=== PATIENT | male | born 1960 | race African-American/Black ===

== ENCOUNTER 2017-10-21 02:04 | Emergency (ER) | payer OTHER ==
[2017-10-21 02:59] VITALS: TEMP 98.4; BMI 24.3
--- NOTE | 2017-10-21 03:44 | PDOC ---
History of Present Illness - General History Source: Patient Exam Limitations: No Limitations - History of Present Illness Initial Comments: 10/21/17 03:55 The patient is a 56 year old male with a significant PMH of HTN, HLD, and TIA who presents to the emergency department with left upper quadrant abdominal pain radiating to his left shoulder beginning approximately 2-3 week ago. The patient states the LUQ pain is a 9/10 and complains of intermittent burping. The patient reports that he has been taking Gas-X with no relief of symptoms. The patient denies any change in bowel movements. The patient denies chest pain , shortness of breath, headache and dizziness. Denies fever, chills, nausea, vomit, diarrhea and constipation. Denies dysuria, frequency, urgency and hematuria. Allergies: NKA Past surgical history: None reported. Social history: No reported alcohol, drug, or cigarette use. PCP: Dr. Joseph <Addis Alexandre - Last Filed: 10/21/17 03:55> - General History Source: Patient <Jermaine Velasquez - Last Filed: 10/21/17 04:29> - General Chief Complaint: Pain Stated Complaint: ABD PAIN Time Seen by Provider: 10/21/17 03:08 Past History <Addis Alexanrde - Last Filed: 10/21/17 03:55> - Past Medical History COPD: No HTN: Yes Hypercholesterolemia: Yes - Surgical History Appendectomy: Yes - Immunization History Immunization Up to Date: Yes - Suicide/Smoking/Psychosocial Hx Smoking History: Never smoked Have you smoked in the past 12 months: No Number of Cigarettes Smoked Daily: 0 Information on smoking cessation initiated: No Hx Alcohol Use: Yes Drug/Substance Use Hx: No Substance Use Type: Alcohol <Jermaine Velasquez - Last Filed: 10/21/17 04:29> - Past Medical History Allergies/Adverse Reactions: Allergies Allergy/AdvReac Type Severity Reaction Status Date / Time No Known Allergies Allergy Verified 10/21/17 02:56 Home Medications: Ambulatory Orders Amlodipine Besylate [Norvasc -] 5 mg PO DAILY 08/08/16 Atorvastatin Ca [Lipitor] 40 mg PO HS 08/08/16 Cholecalciferol (Vitamin D3) [Vitamin D3] 2,000 unit PO DAILY 08/08/16 Aspirin [ASA -] 81 mg PO DAILY #30 tab.chew 08/09/16 Indomethacin 25 mg PO ASDIR #24 capsule 10/21/16 Pantoprazole Sodium [Protonix] 40 mg PO DAILY #30 tablet. 10/21/17 Review of Systems - Review of Systems Able to Perform ROS?: Yes Comments:: 10/21/17 04:01 CONSTITUTIONAL: Absent: fever, no chills, no fatigue EYES: Absent: visual changes ENT: Absent: ear pain, no sore throat CARDIOVASCULAR: Absent: chest pain, no palpitations RESPIRATORY: Absent: cough, no SOB GI: Absent: no nausea, no vomiting, no constipation, no diarrhea Present: LUQ abdominal pain radiating to his left shoulder GENITOURINARY: Absent: dysuria, no frequency, no hematuria MUSKULOSKELETAL: Absent: back pain, no arthralgia, no myalgia SKIN: Absent: rash NEURO: Absent: headache <Addis Alexandre - Last Filed: 10/21/17 03:55> *Physical Exam - Vital Signs Last Vital Signs Temp Pulse Resp BP Pulse Ox 98.4 F 84 14 161/91 98 10/21/17 02:56 10/21/17 02:56 10/21/17 02:56 10/21/17 02:56 10/21/17 02:56 - Physical Exam Comments: 10/21/17 04:02 GENERAL: Well developed, well nourished. Awake and alert. No acute distress. HEENT: Normocephalic, atraumatic. PERRLA, EOMI. No conjunctival pallor. Sclera are non- icteric. Moist mucous membranes. Oropharynx is clear. NECK: Supple. Full ROM. No JVD. Carotid pulses 2+ and symmetric, without bruits. No thyromegaly. No lymphadenopathy. CARDIOVASCULAR: Regular rate and rhythm. No murmurs, rubs, or gallops. Distal pulses are 2+ and symmetric. PULMONARY: No evidence of respiratory distress. Lungs clear to auscultation bilaterally. No wheezing, rales or rhonchi. ABDOMINAL: Soft. Non-tender. Non-distended. No rebound or guarding. No organomegaly. Normoactive bowel sounds. MUSCULOSKELETAL Normal range of motion at all joints. No bony deformities or tenderness. No CVA tenderness. EXTREMITIES: No cyanosis. No clubbing. No edema. No calf tenderness. SKIN: Warm and dry. Normal capillary refill. No rashes. No jaundice. NEUROLOGICAL: Alert, awake, appropriate. Cranial nerves 2-12 intact. No deficits to light touch and temperature in face, upper extremities and lower extremities. No motor deficits in the in face, upper extremities and lower extremities. Normoreflexic in the upper and lower extremities. Normal speech. Toes are down- going bilaterally. Gait is normal without ataxia. PSYCHIATRIC: Cooperative. Good eye contact. Appropriate mood and affect. <Addis Alexandre - Last Filed: 10/21/17 03:55> - Vital Signs Last Vital Signs Temp Pulse Resp BP Pulse Ox 98.4 F 84 14 161/91 98 10/21/17 02:56 10/21/17 02:56 10/21/17 02:56 10/21/17 02:56 10/21/17 02:56 <Jermaine Velasquez - Last Filed: 10/21/17 04:29> Medical Decision Making - Medical Decision Making 10/21/17 04:29 Dr. Velasquez: The scribe's documentation has been prepared under my direction and personally reviewed by me in its entirery. I confirm that the note above accurately reflects all work, treatment, procedures, and medical decision making performed by me. <Jermaine Velasquez - Last Filed: 10/21/17 04:29> *DC/Admit/Observation/Transfer - Attestations Scribe Attestion: 10/21/17 04:03 Documentation prepared by Addis Alexandre, acting as medical research scientist for Jermaine Velasquez DO. <Addis Alexandre - Last Filed: 10/21/17 03:55> - Discharge Dispostion Admit: No <Jermaine Velasquez - Last Filed: 10/21/17 04:29> Diagnosis at time of Disposition: Abdominal pain - Discharge Dispostion Disposition: HOME Condition at time of disposition: Stable - Referrals Referrals: Sanjana Joseph MD [Primary Care Provider] - - Patient Instructions Printed Discharge Instructions: DI for Abdominal Pain-Adult - Post Discharge Activity
[2017-10-21] MEDS ORDERED: PANTOPRAZOLE 40 MG TABLET (FP) PO ONE (03:55)
[2017-10-21] MEDS ORDERED: PANTOPRAZOLE 40 MG TABLET (FP) ONE (03:58)
[2017-10-21 04:36] VITALS: BP 120/82; PULSE 87
== END 2017-10-21 04:36 | disposition home or self-care (01) ==
LOC: JER 02:04
DX: R10.9 Unspecified abdominal pain (principal); I10 Essential (primary) hypertension; E78.5 Hyperlipidemia, unspecified
CPT/HCPCS: 99281-25

== ENCOUNTER 2017-10-21 23:35 | Emergency (ER) | payer OTHER ==
[2017-10-21 23:41] VITALS: BP 156/95; PULSE 81; TEMP 98
--- NOTE | 2017-10-22 00:18 | PDOC ---
History of Present Illness - History of Present Illness Initial Comments: 10/22/17 00:42 56 y/o M with a PMHx of HLD presents to the ED with LUQ pain for 3 weeks. Patient states the pain has gotten progressively worse the past two days. Patient rates the pain a 10/10. He states the pain radiates up to his left sided chest. Patient took camille seltzer and gas-x yesterday with no relief. Patient presented to the ED last night for similar symptoms and was discharged on Protonix. Patient denies fever, chills, NVD. Denies urinary complaints. <Sara Perkins - Last Filed: 10/22/17 01:56> <Maik Bradley - Last Filed: 10/29/17 03:00> - General Chief Complaint: Pain Stated Complaint: PAIN Time Seen by Provider: 10/21/17 23:58 Past History <Sara Perkins - Last Filed: 10/22/17 01:56> - Past Medical History COPD: No HTN: Yes Hypercholesterolemia: Yes - Surgical History Appendectomy: Yes - Immunization History Immunization Up to Date: Yes - Suicide/Smoking/Psychosocial Hx Smoking History: Never smoked Have you smoked in the past 12 months: No Number of Cigarettes Smoked Daily: 0 Hx Alcohol Use: Yes Drug/Substance Use Hx: No Substance Use Type: Alcohol <Maik Bradley - Last Filed: 10/29/17 03:00> - Past Medical History Allergies/Adverse Reactions: Allergies Allergy/AdvReac Type Severity Reaction Status Date / Time No Known Allergies Allergy Verified 10/21/17 23:41 Home Medications: Ambulatory Orders Pantoprazole Sodium [Protonix] 40 mg PO DAILY #30 tablet. 10/21/17 Naproxen [Naprosyn -] 500 mg PO BID PRN #14 tablet 10/22/17 Review of Systems - Review of Systems Comments:: 10/22/17 00:42 CONSTITUTIONAL: No fever, no chills, no fatigue EYES: No visual changes ENT: No ear pain, no sore throat CARDIOVASCULAR: (+) chest pain. no palpitations RESPIRATORY: No cough, no SOB GI: (+) LUQ pain. No nausea, no vomiting, no constipation, no diarrhea GENITOURINARY: No dysuria, no frequency, no hematuria MUSCULOSKELETAL: No back pain, no joint pain, no myalgias SKIN: No rash NEURO: No headache <Sara Perkins - Last Filed: 10/22/17 01:56> *Physical Exam - Vital Signs Last Vital Signs Temp Pulse Resp BP Pulse Ox 98 F 81 18 156/95 100 10/21/17 23:39 10/21/17 23:39 10/21/17 23:39 10/21/17 23:39 10/21/17 23:39 - Physical Exam Comments: 10/22/17 00:42 CONSTITUTIONAL: Well-appearing; well-nourished; in no apparent distress HEAD: Normocephalic; atraumatic EYES: PERRL; EOM intact ENMT: External appears normal; normal oropharynx NECK: Supple; nontender; no cervical lymphadenopathy CARD: Normal S1, S2; no murmurs, rubs, or gallops RESP: Normal chest excursion with respiration; breath sounds clear and equal bilaterally; no wheezes, rhonchi, or rales ABD: LLQ tenderness, L CVA tenderness. Soft, non-distended; no palpable organomegaly, no palpable hernias EXT: Normal ROM in all four extremities; non-tender to palpation; distal pulses intact SKIN: Warm, dry, no rash NEURO: No focal neurological deficiencies. <Sara Perkins - Last Filed: 10/22/17 01:56> - Vital Signs Last Vital Signs Temp Pulse Resp BP Pulse Ox 98 F 81 18 156/95 100 10/21/17 23:39 10/21/17 23:39 10/21/17 23:39 10/21/17 23:39 10/21/17 23:39 <Maik Bradley - Last Filed: 10/29/17 03:00> ED Treatment Course - LABORATORY CBC & Chemistry Diagram: 10/22/17 01:30 10/22/17 01:04 <Sara Perkins - Last Filed: 10/22/17 01:56> - LABORATORY CBC & Chemistry Diagram: 10/22/17 01:30 10/22/17 01:30 <Maik Bradley - Last Filed: 10/29/17 03:00> *DC/Admit/Observation/Transfer - Attestations Scribe Attestion: 10/22/17 00:43 Documentation prepared by Sara Perkins, acting as curator medical museum for Maik Bradley MD. <Sara Perkins - Last Filed: 10/22/17 01:56> <Maik Bradley - Last Filed: 10/29/17 03:00> Diagnosis at time of Disposition: Abdominal pain - Discharge Dispostion Disposition: HOME Condition at time of disposition: Stable - Prescriptions Prescriptions: Naproxen [Naprosyn -] 500 mg PO BID PRN #14 tablet PRN Reason: Pain - Referrals Referrals: Sanjana Joseph MD [Primary Care Provider] - - Patient Instructions Printed Discharge Instructions: DI for Abdominal Pain-Adult Additional Instructions: Follow-up with your primary care doctor within 2-3 days. You may take naproxen for your pain. If your insurance does not cover your naproxen prescription, you may take over the counter ibuprofen as needed for pain. Do not take both ibuprofen and naproxen. Return to the emergency department if you have any new, worsening or concerning symptoms. Print Language: TUNISIAN - Post Discharge Activity
[2017-10-22] MEDS ORDERED: KETOROLAC TROMETHAMINE 15 MG/ML VIAL IVPUSH ONE (00:38)
[2017-10-22] MEDS ORDERED: KETOROLAC TROMETHAMINE 15 MG/ML VIAL ONE (00:41)
[2017-10-22 01:12] LABS: URINE APPEARANCE CLEAR; URINE BILIRUBIN NEGATIVE (NEGATIVE); URINE BLOOD 1+ (NEGATIVE); URINE COLOR STRAW; URINE GLUCOSE (UA) NEGATIVE (NEGATIVE); URINE KETONE NEGATIVE (NEGATIVE); URINE NITRITE NEGATIVE (NEGATIVE); URINE PROTEIN NEGATIVE (NEGATIVE); URINE UROBILINOGEN NEGATIVE mg/dL (0.2-1.0)
[2017-10-22 01:20] LABS: URINE RBC 2 /hpf (0-3); URINE WBC <1 /hpf (3-5)
[2017-10-22 01:46] LABS: BASOPHIL 0.2 % (0-2.0); EOSINOPHIL 1.1 % (0-4.5); MCH 27.9 pg (25.7-33.7); MCHC 33.3 g/dl (32.0-35.9); MEAN CELL VOLUME 83.9 fl (80-96); NEUTROPHILS 63.3 % (42.8-82.8); PLATELET COUNT 191 K/MM3 (134-434); RDW 13.4 % (11.9-15.9); WHITE BLOOD COUNT 8.6 K/mm3 (4.0-10.0)
[2017-10-22 02:09] LABS: ALBUMIN 4.1 g/dl (3.4-5.0); ANION GAP 8 (8-16); BILIRUBIN,TOTAL 0.4 mg/dL (0.2-1.0); CALCIUM 9.4 mg/dL (8.5-10.1); CO2 32 mmol/L (21-32); CREATININE 1.2 mg/dL (0.7-1.3); GLUCOSE,RANDOM 96 mg/dL (74-106); SGOT/AST 12 U/L (15-37); SGPT/ALT 25 U/L (12-78)
[2017-10-22 02:10] LABS: ALK PHOS 94 U/L (45-117)
--- NOTE | 2017-10-22 02:26 | PDOC ---
*Physical Exam - Vital Signs Last Vital Signs Temp Pulse Resp BP Pulse Ox 98 F 81 18 156/95 100 10/21/17 23:39 10/21/17 23:39 10/21/17 23:39 10/21/17 23:39 10/21/17 23:39 ED Treatment Course - LABORATORY CBC & Chemistry Diagram: 10/22/17 01:30 10/22/17 01:30 - ADDITIONAL ORDERS Additional order review: Laboratory Results 10/22/17 10/22/17 10/22/17 01:30 01:04 01:04 Sodium 140 Cancelled Potassium 4.3 Cancelled Chloride 100 Cancelled Carbon Dioxide 32 Cancelled Anion Gap 8 Cancelled BUN 12 Cancelled Creatinine 1.2 Cancelled Creat Clearance w eGFR > 60 Cancelled Random Glucose 96 Cancelled Calcium 9.4 Cancelled Total Bilirubin 0.4 Cancelled AST 12 L D Cancelled ALT 25 D Cancelled Alkaline Phosphatase 94 Cancelled Total Protein 8.0 Cancelled Albumin 4.1 Cancelled Lipase 143 Cancelled Urine Color Straw Urine Appearance Clear Urine pH 6.0 Ur Specific [place] 1.006 Urine Protein Negative Urine Glucose (UA) Negative Urine Ketones Negative Urine Blood 1+ H Urine Nitrite Negative Urine Bilirubin Negative Urine Urobilinogen Negative Urine WBC (Auto) <1 Urine RBC (Auto) 2 10/22/17 10/22/17 01:30 01:04 RBC 5.00 Cancelled MCV 83.9 Cancelled MCHC 33.3 Cancelled RDW 13.4 Cancelled MPV 9.0 Cancelled Neutrophils % 63.3 Cancelled Lymphocytes % 22.9 Cancelled Monocytes % 12.5 H Cancelled Eosinophils % 1.1 Cancelled Basophils % 0.2 Cancelled - Medications Given in the ED: ED Medications Discontinued Medications Generic Name Dose Route Start Last Admin Trade Name Freq PRN Reason Stop Dose Admin Ketorolac Tromethamine 15 mg 10/22/17 00:38 10/22/17 01:30 Toradol Injection - IVPUSH 10/22/17 00:39 15 mg ONCE ONE Administration Medical Decision Making - Medical Decision Making 10/22/17 02:25 Patient signed out to me by Dr. Bradley, is pending CT to rule out kidney stone. Per Dr. Bradley if CT scan is negative the patient can be discharged with NSAIDs. CT scan is pending currently. 10/22/17 04:05 CT scan with possible atelectasis versus infiltrate in the left lower lung base. On my evaluation, the patient denies any fevers or chills or coughing. Lungs are clear to auscultation bilaterally. He states that currently he has no pain after the pain medication. Pain is likely musculoskeletal. Will discharge the patient with naproxen and advised him to follow-up with his primary doctor in 2-3 days. Patient is amenable to plan. I discussed the physical exam findings, ancillary test results and final diagnoses with the patient. I answered all of the patient's questions. The patient was satisfied with the care received and felt comfortable with the discharge plan and treatment plan. The patient will call their primary care physician within 24 hours to arrange follow-up and will return to the Emergency Department with any new, persistent or worsening symptoms. *DC/Admit/Observation/Transfer Diagnosis at time of Disposition: Abdominal pain - Discharge Dispostion Disposition: HOME Condition at time of disposition: Stable Admit: No - Referrals Referrals: Sanjana Joseph MD [Primary Care Provider] - - Patient Instructions Printed Discharge Instructions: DI for Abdominal Pain-Adult Additional Instructions: Follow-up with your primary care doctor within 2-3 days. You may take naproxen for your pain. If your insurance does not cover your naproxen prescription, you may take over the counter ibuprofen as needed for pain. Do not take both ibuprofen and naproxen. Return to the emergency department if you have any new, worsening or concerning symptoms. Print Language: CROATIAN - Post Discharge Activity - Attestations Physician Attestion: 10/22/17 04:08 I, Dr. Andrew Moreno MD, attest that this document has been prepared under my direction and personally reviewed by me in its entirety. I further attest, that it accurately reflects all work, treatment, procedures and medical decision -making performed by me.
[2017-10-22 10:48] LABS: URINE LEUK ESTERASE Negative (NEGATIVE)
== END 2017-10-22 04:22 | disposition home or self-care (01) ==
LOC: JER 23:35
PROC: 3E0333Z Introduction of Anti-inflammatory into Peripheral Vein, Percutaneous Approach (ICD-10-PCS; principal; 2017-10-21)
DX: R10.12 Left upper quadrant pain (principal)
CPT/HCPCS: 36415; 74176; 80053; 81003; 81015; 83690; 85025; 87086; 96374; 99281-25; 99283-25

== ENCOUNTER 2019-03-07 02:05 | Emergency (ER) | payer OTHER ==
--- NOTE | 2019-03-07 02:30 | PDOC ---
History of Present Illness - General Stated Complaint: PAIN LEFT FOOT Time Seen by Provider: 03/07/19 02:27 - History of Present Illness Initial Comments: 03/07/19 02:28 58 yo M with h/o HTN, HLD, TIA who p/w left ankle pain. Patient reports 3-4 days of worsening left ankle pain, and swelling, worse with ambulation. Pain described as sharp, and diffusely painful at left ankle. Patient reports he has h/o gout and consistent with prior gout flares. States that he has been more sedentary and has increased beer and meat intake within past week. Patient states that he took colchicine and one prednsione pill 3 days ago. Denies trauma to ankle or fall. Patient denies T[place], vision change, palpitations, cough, wheezing, orthopena, PND , leg swelling/pain, N/V, F,C, CP, SOB, urinary complaints, hematuria, BPR, abdominal pain, diarrhea, constipation, lightheadedness, weakness, sensory changes. PMHx: as noted above ROS: as noted SHx: Denies IVDA, tobacco use Allergies: NKDA Past History - Past Medical History Allergies/Adverse Reactions: Allergies Allergy/AdvReac Type Severity Reaction Status Date / Time No Known Allergies Allergy Verified 03/07/19 02:34 Home Medications: Ambulatory Orders Pantoprazole Sodium [Protonix] 40 mg PO DAILY #30 tablet. 10/21/17 Naproxen [Naprosyn -] 500 mg PO BID PRN #14 tablet 10/22/17 Colchicine 0.6 mg PO ONCE #1 tablet 03/07/19 Indomethacin 25 mg PO PRN PRN #30 capsule MDD 2 tab 03/07/19 Pravastatin Sodium [Pravachol -] 40 mg PO HS #30 tablet 03/07/19 predniSONE [Deltasone -] See Taper PO DAILY #8 tablet MDD see taper 03/07/19 COPD: No HTN: Yes Hypercholesterolemia: Yes - Surgical History Appendectomy: Yes - Immunization History Immunization Up to Date: Yes - Suicide/Smoking/Psychosocial Hx Smoking History: Never smoked Have you smoked in the past 12 months: No Number of Cigarettes Smoked Daily: 0 Hx Alcohol Use: Yes Drug/Substance Use Hx: No Substance Use Type: Alcohol Review of Systems - Review of Systems Comments:: 03/07/19 02:29 GENERAL/CONSTITUTIONAL: No fever or chills. No weakness. HEAD, EYES, EARS, NOSE AND THROAT: No change in vision. No ear pain or discharge. No sore throat. CARDIOVASCULAR: No chest pain or shortness of breath RESPIRATORY: No cough, wheezing, or hemoptysis. GASTROINTESTINAL: No nausea, vomiting, diarrhea or constipation. GENITOURINARY: No dysuria, frequency, or change in urination. MUSCULOSKELETAL: + Left ankle pain/swelling. No neck or back pain. SKIN: No rash NEUROLOGIC: No headache, vertigo, loss of consciousness, or change in strength/ sensation. ENDOCRINE: No increased thirst. No abnormal weight change HEMATOLOGIC/LYMPHATIC: No anemia, easy bleeding, or history of blood clots. ALLERGIC/IMMUNOLOGIC: No hives or skin allergy. *Physical Exam - Physical Exam Comments: 03/07/19 02:29 GENERAL: Awake, alert, and fully oriented, in no acute distress HEAD: No signs of trauma, normocephalic, atraumatic EYES: PERRLA, EOMI, sclera anicteric, conjunctiva clear ENT: Hearing grossly normal, nares patent, oropharynx clear without exudates. Moist mucosa NECK: Normal ROM, supple, no lymphadenopathy, JVD, or masses LUNGS: No distress, speaks full sentences, clear to auscultation bilaterally HEART: Regular rate and rhythm, normal S1 and S2, no murmurs, rubs or gallops, peripheral pulses normal and equal bilaterally. ABDOMEN: Soft, nontender, normoactive bowel sounds. No guarding, no rebound. No masses EXTREMITIES : + Left ankle swelling/edema, with absent overlying warmth, streaking, or erythema. Pain with passive dorsiflexion. Extrermities otherwise normal inspection, Normal range of motion, no edema. No clubbing or cyanosis. Palpable and symmetric pulses DP/PT BL. NEUROLOGICAL: Cranial nerves II through XII grossly intact. Normal speech, normal gait, no focal sensorimotor deficits SKIN: Warm, Dry, normal turgor, no rashes or lesions noted Medical Decision Making - Medical Decision Making 03/07/19 02:46 58 yo M with h/o HTN, HLD, TIA who p/w left ankle pain. Patient reports 3-4 days of worsening left ankle pain, and swelling, worse with ambulation. Vtials wnl, AF, A&Ox3. + Left ankle swelling/edema, with absent overlying warmth, streaking, or erythema. Patient with likely gout vs. pseudogout. Will consider degenerative disease, ankle sprain/strain. No evidence of septic joint. Denies acute ankle trauma or injury. ED Course: Colchicine 1.2 mg, Indomethacin, Prednisone 50 mg 03/07/19 02:54 Patient counseled on dietary modification and need to f/u with PMD 03/07/19 03:48 Sent Indomethacin, steroid taper to pharmacy Stable for d/c with return precautions. Seen ambulating around ED. *DC/Admit/Observation/Transfer Diagnosis at time of Disposition: Gout Qualifiers: Gout site: ankle Gout etiology: unspecified cause Chronicity: acute Laterality : left Qualified Code(s): M10.9 - Gout, unspecified - Discharge Dispostion Condition at time of disposition: Stable Decision to Admit order: No - Prescriptions Prescriptions: Colchicine 0.6 mg PO ONCE #1 tablet Indomethacin 25 mg PO PRN PRN #30 capsule MDD 2 tab PRN Reason: Pain Pravastatin Sodium [Pravachol -] 40 mg PO HS #30 tablet predniSONE [Deltasone -] See Taper PO DAILY #8 tablet MDD see taper - Referrals Referrals: Pati Ramirez MD [Primary Care Provider] - - Patient Instructions Printed Discharge Instructions: DI for Gout, Gout (Alternative Therapy), Higher Vitamin C Intake Associated With Lower Risk of Gout Additional Instructions: Please return to the emergency department with any new or worsening symptoms or concerns. Please follow up with your primary care physician within 72 hours. Take Prednisone and Indomethacin as prescribed. - Post Discharge Activity
[2019-03-07 02:34] VITALS: BMI 22.7
[2019-03-07] MEDS ORDERED: INDOMETHACIN 25 MG CAPSULE PO ONE (02:43)
[2019-03-07] MEDS ORDERED: COLCHICINE 0.6 MG TABLET (FP) PO ONE (02:43)
[2019-03-07] MEDS ORDERED: predniSONE 20 MG TABLET (UD) PO SCH ×2 (02:59→10:00)
--- NOTE | 2019-03-07 03:00 | PDOC ---
Attending Attestation - Resident Resident Name: DnetonSpencerMarcel - ED Attending Attestation I have performed the following: I have examined & evaluated the patient, The case was reviewed & discussed with the resident, I agree w/resident's findings & plan - HPI HPI: 03/07/19 02:56 58 YOM with h/o HTN, HLD and TIA, gouty presenting with 3-4 d of left ankle pain and swelling admits he ran out of his meds: prednisone, colchicine and indomethacin. also admits to drinking beer/etoh and high intake of meats also endorses stressors with the tax season, since November 2018 and has not been able to see his primary doctor. - Physicial Exam PE: 03/07/19 02:57 NAD, well appearing, no respiratory distress, 2+ pulses throughout. abdomen soft nontender. SALDANA x4, no focal neuro deficits. No peripheral edema. normal color for ethnicity, WWP. +left ankle tenderness in malleolar joints, FROM, mild swelling, no skin discoloration, able to bear weight and ambulate - Medical Decision Making 03/07/19 02:58 hpi as documented VS reviewed, wnl no trauma. no systemic or infectious sx. given dose of his meds here, rx script for his usual gouty regimen analgesia, steroid short course. no imaging indicated caution and counseled on dietary modifications, avoid high intake of protein, deli meats/salty foods, alcohol and stressors as triggers. Pt informed of my clinical impression, treatment recommendations and disposition plan. All questions answered to patient's satisfaction and expressed understanding and comfort with this. Reasons for returning to the ED sooner discussed including new or persistent/worsening symptoms with the patient otherwise, follow up with primary care physician. At the time of discharge, the patient is alert, clinically improved, tolerating po and verbalizes understanding of instructions, satisfied with the care received and felt comfortable with the plan. Patient does not suffer from an acute life- threatening medical condition at this time he is safe for outpatient follow-up.
[2019-03-07] MEDS ORDERED: COLCHICINE 0.6 MG TABLET (FP) ONE (03:02)
[2019-03-07] MEDS ORDERED: predniSONE 20 MG TABLET (UD) ONE (03:02)
[2019-03-07] MEDS ORDERED: predniSONE 20 MG TABLET (UD) PO ONE (03:26)
[2019-03-07 05:12] VITALS: BP 154/82; PULSE 80; TEMP 97.8
== END 2019-03-07 05:12 | disposition home or self-care (01) ==
LOC: JER 02:05
DX: M10.9 Gout, unspecified (principal); I10 Essential (primary) hypertension; E78.5 Hyperlipidemia, unspecified; Z86.73 Personal history of transient ischemic attack (TIA), and cerebral infarction without residual deficits
CPT/HCPCS: 99282-25

== ENCOUNTER 2022-05-18 22:49 | Emergency (ER) | payer OTHER ==
[2022-05-18 23:11] VITALS: TEMP 98; BMI 25.1
[2022-05-19] MEDS ORDERED: amLODIPine BESYLATE 5 MG TABLET (FP) PO ONE (00:45)
[2022-05-19] MEDS ORDERED: amLODIPine BESYLATE 5 MG TABLET (FP) ONE (00:51)
[2022-05-19 01:42] LABS: BASO % 0.4 % (0-2.0); HEMATOCRIT 41.8 % (35.4-49); HEMOGLOBIN 13.6 GM/dL (11.7-16.9); LYMPH % 32.7 % (8-40); MCH 28.1 pg (25.7-33.7); MCHC 32.6 g/dl (32.0-35.9); MEAN PLT VOLUME 9.6 fl (7.5-11.1); MONO % 10.8 % (3.8-10.2); NEUT % 54.1 % (42.8-82.8); PLATELET COUNT 171 10^3/uL (134-434); RBC 4.85 M/mm3 (4.00-5.60)
[2022-05-19 01:43] LABS: EPI CELLS 10 /uL (0-25.1); HYALINE CASTS 2 /uL (0-3.1); PH,URINE 5.5 (5.0-8.0); URINE APPEARANCE CLEAR; URINE BACTERIA 12 /uL (0-1359); URINE BILIRUBIN NEGATIVE (NEGATIVE); URINE COLOR YELLOW; URINE GLUCOSE (UA) NEGATIVE (NEGATIVE); URINE KETONE NEGATIVE (NEGATIVE); URINE LEUK ESTERASE 1+ (NEGATIVE); URINE NITRITE NEGATIVE (NEGATIVE); URINE PROTEIN NEGATIVE (NEGATIVE); URINE RBC 4 /uL (0-23.9); URINE WBC 261 /uL (0-25.8)
[2022-05-19 01:59] LABS: ALBUMIN 3.6 g/dl (3.4-5.0); BLOOD UREA NITROGEN 13.2 mg/dL (7-18); CALCIUM 8.8 mg/dL (8.5-10.1)
[2022-05-19 02:02] LABS: CREATININE 1.1 mg/dL (0.55-1.3)
[2022-05-19 02:04] LABS: BILIRUBIN,TOTAL 0.5 mg/dL (0.2-1); TOT PROT 7.7 g/dl (6.4-8.2)
[2022-05-19] MEDS ORDERED: CEFTRIAXONE 1 GM in DEXTROSE 5%-WATER - 100 ML IVPB ONE (02:20)
[2022-05-19] MEDS ORDERED: CEFTRIAXONE 1 GM/50 ML BAG ONE (02:38)
[2022-05-19 03:00] VITALS: BP 164/90; PULSE 85
== END 2022-05-19 03:02 | disposition home or self-care (01) ==
LOC: JER 22:49
DX: N39.0 Urinary tract infection, site not specified (principal); I10 Essential (primary) hypertension; Z20.2 Contact with and (suspected) exposure to infections with a predominantly sexual mode of transmission
CPT/HCPCS: 36415; 80053; 81003; 85025; 87491; 87591; 87661; 93005; 93010; 96374; 99284-25

== ENCOUNTER 2022-07-06 21:37 | Emergency (ER) | payer OTHER ==
[2022-07-06 21:54] VITALS: RESP 18; TEMP 98; BMI 28.1
[2022-07-06 23:48] LABS: BASO % 0.3 % (0-2.0); EOS % 0.7 % (0-4.5); HEMATOCRIT 46.9 % (35.4-49); HEMOGLOBIN 15.7 GM/dL (11.7-16.9); LYMPH % 23.8 % (8-40); MCH 28.3 pg (25.7-33.7); MCHC 33.4 g/dl (32.0-35.9); MEAN CELL VOLUME 84.5 fl (80-96); MEAN PLT VOLUME 9.3 fl (7.5-11.1); MONO % 11.8 % (3.8-10.2); NEUT % 63.4 % (42.8-82.8); PLATELET COUNT 208 10^3/uL (134-434); RBC 5.55 M/mm3 (4.00-5.60); WHITE BLOOD COUNT 8.5 K/mm3 (4.0-10.0)
[2022-07-07 00:10] LABS: CALCIUM 9.1 mg/dL (8.5-10.1)
[2022-07-07 00:11] LABS: ALBUMIN 3.9 g/dl (3.4-5.0); BLOOD UREA NITROGEN 8.9 mg/dL (7-18)
[2022-07-07 00:14] LABS: CREATININE 1.2 mg/dL (0.55-1.3)
[2022-07-07 00:16] LABS: BILIRUBIN,TOTAL 0.6 mg/dL (0.2-1); TOT PROT 7.8 g/dl (6.4-8.2)
[2022-07-07 00:35] VITALS: BP 144/104; PULSE 87
== END 2022-07-07 00:45 | disposition home or self-care (01) ==
LOC: JER 21:37
DX: I10 Essential (primary) hypertension (principal)
CPT/HCPCS: 36415; 80053; 85025; 93005; 93010; 99284-25

== ENCOUNTER 2022-07-09 11:11 | Emergency (ER) | payer OTHER ==
[2022-07-09 11:17] VITALS: RESP 18; BMI 27.3
[2022-07-09] MEDS ORDERED: TETRACAINE 0.5% HCL 0.6ML DROPPER.BOTTLE OS ONE (12:27)
[2022-07-09] MEDS ORDERED: FLUORESCEIN NA 1 EA STRIP ONE (12:35)
[2022-07-09] MEDS ORDERED: TETRACAINE 0.5% OPHTH SOLN 2 ML BOTTLE ONE (12:35)
[2022-07-09 13:22] VITALS: PULSE 93; TEMP 98.4
[2022-07-09 13:34] VITALS: BP 165/99
== END 2022-07-09 14:07 | disposition home or self-care (01) ==
LOC: JER 11:11
DX: T15.90XA Foreign body on external eye, part unspecified, unspecified eye, initial encounter (principal)
CPT/HCPCS: 99283-25

== ENCOUNTER 2024-01-23 21:37 | Emergency (ER) | payer OTHER ==
[2024-01-23 21:43] VITALS: TEMP 97.6; BMI 26.6
[2024-01-23 22:03] VITALS: BP 158/87; PULSE 96; RESP 18
[2024-01-23] MEDS ORDERED: ACETAMINOPHEN INJECTION 100 ML IVPB ONE (22:12)
[2024-01-23] MEDS ORDERED: MAG HYDROX/AL HYDROX/SIMETH 30 ML UNIT-DOSE CUP ONE (22:12)
[2024-01-23] MEDS ORDERED: FAMOTIDINE 20 MG/50 ML IVPB 20 MG/50 ML MG IVPB ONE (22:12)
[2024-01-23] MEDS: FAMOTIDINE 20 MG/50 ML IVPB 20 MG/50 ML MG IVPB ONE (22:32)
[2024-01-23] MEDS: ACETAMINOPHEN 1000 MG/100 ML BAG IVPB ONE (22:32)
[2024-01-23] MEDS: MAG HYDROX/AL HYDROX/SIMETH 30 ML UNIT-DOSE CUP PO ONE (22:32)
[2024-01-23 22:33] LABS: BASO % 0.4 % (0-2.0); EOS % 1.3 % (0-4.5); HEMATOCRIT 41.4 % (35.4-49); HEMOGLOBIN 13.8 GM/dL (11.7-16.9); LYMPH % 29.4 % (8-40); MCH 28.2 pg (25.7-33.7); MCHC 33.4 g/dl (32.0-35.9); MEAN CELL VOLUME 84.5 fl (80-96); MEAN PLT VOLUME 8.5 fl (7.5-11.1); MONO % 9.5 % (3.8-10.2); NEUT % 59.4 % (42.8-82.8); PLATELET COUNT 197 10^3/uL (134-434); RDW 13.6 % (11.9-15.9); WHITE BLOOD COUNT 7.1 K/mm3 (4.0-10.0)
[2024-01-23 22:42] LABS: PH,URINE 6.5 (5.0-8.0); URINE APPEARANCE CLEAR; URINE BILIRUBIN NEGATIVE (NEGATIVE); URINE COLOR YELLOW; URINE GLUCOSE (UA) NEGATIVE (NEGATIVE); URINE KETONE NEGATIVE (NEGATIVE); URINE LEUK ESTERASE NEGATIVE (NEGATIVE); URINE NITRITE NEGATIVE (NEGATIVE); URINE PROTEIN NEGATIVE (NEGATIVE); URINE UROBILINOGEN 0.2 mg/dL (0.2-1.0)
[2024-01-23 22:46] LABS: ACTIVATED PTT 32.3 SECONDS (25.2-36.5); INR 0.97 (0.83-1.09); PROTHROMBIN TIME (PATIENT) 11.2 SEC (9.7-13.0)
[2024-01-23 22:59] LABS: POTASSIUM 4.4 mmol/L (3.5-5.1)
[2024-01-23 23:01] LABS: CALCIUM 9.1 mg/dL (8.5-10.1)
[2024-01-23 23:02] LABS: ALBUMIN 3.8 g/dl (3.4-5.0); BLOOD UREA NITROGEN 11.5 mg/dL (7-18); MAGNESIUM 2.1 mg/dL (1.8-2.4)
[2024-01-23 23:05] LABS: CREATININE 1.1 mg/dL (0.55-1.3)
[2024-01-23 23:07] LABS: BILIRUBIN,TOTAL 0.4 mg/dL (0.2-1)
== END 2024-01-23 23:42 | disposition home or self-care (01) ==
LOC: JER 21:37
PROC: 3E033GC Introduction of Other Therapeutic Substance into Peripheral Vein, Percutaneous Approach (ICD-10-PCS; principal; 2024-01-23)
PROC: 3E033GC Introduction of Other Therapeutic Substance into Peripheral Vein, Percutaneous Approach (ICD-10-PCS; 2024-01-23)
DX: R07.2 Precordial pain (principal); R11.0 Nausea; K21.9 Gastro-esophageal reflux disease without esophagitis; R00.0 Tachycardia, unspecified
CPT/HCPCS: 36415; 71045-TC-FY; 80053; 81003; 83690; 83735; 84484; 85025; 85610; 85730; 86850; 86900; 86901; 87086; 93005; 93010; 96365; 96375; 99285-25; J0131

== ENCOUNTER 2025-03-15 01:11 | Emergency (ER) | payer OTHER ==
[2025-03-15 01:22] VITALS: BP 160/98; PULSE 76; RESP 18; TEMP 98.6; BMI 33.2
[2025-03-15] MEDS ORDERED: TETRACAINE 0.5% OPHTH SOLN 2 ML BOTTLE ONE (02:31)
[2025-03-15] MEDS ORDERED: FLUORESCEIN NA 1 EA STRIP ONE (02:31)
[2025-03-15] MEDS: TETRACAINE 0.5% HCL 0.6ML DROPPER.BOTTLE OU ONE (02:33)
[2025-03-15] MEDS: FLUORESCEIN NA 1 EA STRIP OU ONE (02:33)
== END 2025-03-15 04:02 | disposition home or self-care (01) ==
LOC: JER 01:11
DX: H57.12 Ocular pain, left eye (principal); H57.8A2 Foreign body sensation, left eye
CPT/HCPCS: 99283-25

== ENCOUNTER 2025-09-15 14:01 | Emergency (ER) | payer OTHER ==
[2025-09-15 14:27] VITALS: BP 187/103; PULSE 89; RESP 18; TEMP 97.9; BMI 23.9
== END 2025-09-15 15:51 | disposition home or self-care (01) ==
LOC: JER 14:01
DX: I10 Essential (primary) hypertension (principal); R51.9 Headache, unspecified
CPT/HCPCS: 93005; 93010; 99283-25